=== PATIENT | female | born 1930 | race Caucasian/White ===

== ENCOUNTER 2017-03-31 16:54 | Outpatient (CLI) | payer MEDICARE, OTHER ==
[2015-08-02 07:32] VITALS: BP 185/95
[2017-03-31 17:09] LABS: BASOPHILS % 0.5 (0.0-1.5); EOSINOPHILS % 1.3 % (0.0-6.8); MEAN CORPUSCULAR HEMOGLOBIN 29.8 pg (28.0-34.0); MEAN CORPUSCULAR VOLUME 92.5 fl (80.0-100.0); MONOCYTES % 3.9 % (0.0-11.0); NEUTROPHILS # 4.2 # k/uL (1.4-7.7)
[2017-03-31 17:31] LABS: eGFR (African) > 60; eGFR (Non-African) > 60
== END 2017-03-31 16:55 ==
LOC: LABRHC 16:54
PROVIDERS: ATTEND Family Medicine
DX: I10 Essential (primary) hypertension (principal); N39.0 Urinary tract infection, site not specified
CPT/HCPCS: 80053; 85025; 87086; 87186